=== PATIENT | male | born 1950 | race Caucasian/White ===

== ENCOUNTER 2016-03-23 04:26 | Emergency (ER) | payer MEDICARE, MEDICAID ==
[2016-03-23] MEDS ORDERED: MORPHINE 4 MG/ML INJECTION IV ONE (04:52)
[2016-03-23] MEDS ORDERED: NS 1,000 ML IV ONE ×2 (04:52→05:38)
[2016-03-23 05:15] LABS: AUTOMATED BASOPHIL 1.5 % (0-2); AUTOMATED LYMPH 23.3 % (17-44); AUTOMATED MONOCYTE 12.7 % (3-10); AUTOMATED NEUTROPHIL 60.5 % (45-76); MPV 8.1 fL (7.4-10.4)
[2016-03-23 05:16] VITALS: TEMP 98.7; BMI 25.0
--- NOTE | 2016-03-23 05:22 | EDPRACDOC ---
- General Information Stated Complaint: VOMITING, UPPER ABD PAIN Time Seen by Provider: 03/23/16 04:45 Information Source: Patient Mode Of Arrival: Car Home Medications: Home Medications Promethazine [Phenergan] 25 mg PO Q8H PRN #30 tab 03/23/16 Allergies/Adverse Reactions: Allergies Allergy/AdvReac Type Severity Reaction Status Date / Time No Known Allergies Allergy Verified 12/30/11 09:14 - History of Present Illness Onset: WEDNESDAY HPI: PT PRESENTS WITH 2 DAYS OF EPIGASTRIC/SUBSTERNAL PAIN WITH NAUSEA AND VOMITING. Pain Location: Reports: Epigastric Pain Context: Reports: Spontaneous Pain Severity: Moderate Pain Quality: Reports: Aching Modifying Factors: improves with: Nothing Associated Signs & Symptoms: Reports: Nausea, Vomiting, Diarrhea. Denies: Fever Oral Intake: Decreased ED Past Medical History - History Reviewed Yes Nurses notes reviewed and agree except as marked - Patient Medical History Psychological History: Denies: Depression Systemic History: Denies: Cancer Surgical History: Reports: Appendectomy - Social Medical History Smoking Status: Heavy tobacco smoker (5 or more cigarettes/day or daily pipe/ cigar) Lives With: Family Lives In: Home EDM Review of Systems - Review of Systems ROS Negative Except as Marked: Yes All systems reviewed and were negative except as marked Constitutional: negative: Fever Respiratory: negative: Shortness of Breath Cardiovascular: Chest Pain (LOWER SUBSTERNAL) Gastrointestinal: Diarrhea, Nausea, Pain (EPIGASTRIC), Vomiting Genitourinary: negative: Dysuria - Physical Exam Constitutional: Alert Oriented to: Time, Person, Place Last recorded Vital Signs: Last Vital Signs Temp 98.7 F 03/23/16 05:11 Pulse 74 03/23/16 05:16 Resp 18 03/23/16 05:16 BP 162/80 03/23/16 05:16 Pulse Ox 95 03/23/16 05:16 Oxygen Pulse Oxygen Saturation 95 O2 Device Oxygen Flow Rate Fraction of Inspired Oxygen ( FIO2) - HEENT Head: negative: Deformity, Laceration Eye Exam: negative: Conjunctival Injection, Pale Conjunctiva Oropharynx: negative: Membranes Dry Nose: negative: Congestion, Discharge Neck: negative: Limited ROM - Respiratory/Cardiovascular Respiratory: Normal - CTA. negative: Accessory Muscle Use, Diminished, Tachypnea Cardiovascular: negative: Bradycardia, Tachycardia, Irregular - GI Auscultation: Normal Palpation: Normal Tenderness: Mild, Epigastric. negative: Guarding, Rebound, Rigidity - Musculoskeletal Extremities: Radial Pulse (PALPABLE) - Integumentary Skin: Warm, Dry. negative: Rash - Neurologic Memory Impaired: Normal Motor Function: Normal Mood Description: Anxious Thought: Coherent Perception: Normal - Results 03/23/16 05:00 03/23/16 05:00 WBC 11.7 xk/uL (3.8-10.8) H 03/23/16 05:00 RBC 5.85 xM/uL (4.70-6.10) 03/23/16 05:00 Hgb 17.7 g/dL (14.0-18.0) 03/23/16 05:00 Hct 51.5 % (42-52) 03/23/16 05:00 MCV 88 fL (80-94) 03/23/16 05:00 MCH 30.2 pg (27-32) 03/23/16 05:00 MCHC 34.3 g/dl (33-36) 03/23/16 05:00 RDW 14.5 % (11.5-14.5) 03/23/16 05:00 Plt Count 199 xk/uL (130-400) 03/23/16 05:00 MPV 8.1 fL (7.4-10.4) 03/23/16 05:00 Neut % (Auto) 60.5 % (45-76) 03/23/16 05:00 Lymph % (Auto) 23.3 % (17-44) 03/23/16 05:00 [place] % (Auto) 12.7 % (3-10) H 03/23/16 05:00 Eos % (Auto) 2.0 % (0-5) 03/23/16 05:00 Baso % (Auto) 1.5 % (0-2) 03/23/16 05:00 Absolute Neuts (auto) 7.02 xk/uL (1.7-8.2) 03/23/16 05:00 Absolute Lymphs (auto) 2.69 xk/uL (0.65-4.75) 03/23/16 05:00 PT 10.3 SEC (9.2-11.2) 03/23/16 05:00 INR 1.0 03/23/16 05:00 APTT 30.8 SEC (22-35) 03/23/16 05:00 Sodium 136 mEq/L (137-146) L 03/23/16 05:00 Potassium 4.2 mEq/L (3.5-5.1) 03/23/16 05:00 Chloride 99 mEq/L (98-107) 03/23/16 05:00 Carbon Dioxide 26 mMOL/L (22-33) 03/23/16 05:00 Anion Gap 15 mEq/L (8-16) 03/23/16 05:00 BUN 20 MG/DL (9-20) 03/23/16 05:00 Creatinine 1.10 MG/DL (0.66-1.25) 03/23/16 05:00 Estimated GFR (MDRD) > 60 mL/min (>=60) 03/23/16 05:00 Glucose 128 MG/DL (70-99) H 03/23/16 05:00 Calculated Osmolality 267 MOs/Kg (270-290) L 03/23/16 05:00 Calcium 9.2 MG/DL (8.4-10.2) 03/23/16 05:00 Total Bilirubin 1.0 MG/DL (0.2-1.3) 03/23/16 05:00 AST 22 IU/L (17-59) 03/23/16 05:00 ALT 20 IU/L (21-72) L 03/23/16 05:00 Alkaline Phosphatase 95 IU/L (50-160) 03/23/16 05:00 Creatine Kinase 80 IU/L (55-170) 03/23/16 05:00 Troponin I < 0.01 ng/mL (<.04) 03/23/16 05:00 Total Protein 7.7 G/DL (6.3-8.2) 03/23/16 05:00 Albumin 4.2 G/DL (3.5-5.0) 03/23/16 05:00 Lipase 26 U/L (23-300) 03/23/16 05:00 Urine Color Dark yellow 03/23/16 05:16 Urine Clarity Clear 03/23/16 05:16 Urine pH 5.0 (5.0-8.0) 03/23/16 05:16 Ur Specific [place] 1.025 03/23/16 05:16 Urine Protein 1+ (NEG/TRACE) H 03/23/16 05:16 Urine Glucose (UA) Neg (NEGATIVE) 03/23/16 05:16 Urine Ketones Neg (NEGATIVE) 03/23/16 05:16 Urine Occult Blood Neg (NEG/TRACE) 03/23/16 05:16 Urine Nitrite Neg (NEGATIVE) 03/23/16 05:16 Urine Bilirubin Neg (NEGATIVE) 03/23/16 05:16 Urine Urobilinogen 0.2 MG/DL (0-1) 03/23/16 05:16 Ur Leukocyte Esterase Neg (NEGATIVE) 03/23/16 05:16 Urine RBC 2-5 (0-2) H 03/23/16 05:16 Urine WBC 2-5 (0-2) H 03/23/16 05:16 Urine Bacteria Few (NEG/FEW) 03/23/16 05:16 Hyaline Casts 10-20 (0-2) H 03/23/16 05:16 Urine Mucus Large (NEG/OCC) 03/23/16 05:16 Lab Results 03/23/16 03/23/16 03/23/16 05:16 05:00 05:00 WBC 11.7 H RBC 5.85 Hgb 17.7 Hct 51.5 MCV 88 MCH 30.2 MCHC 34.3 RDW 14.5 Plt Count 199 MPV 8.1 Neut % (Auto) 60.5 Lymph % (Auto) 23.3 [place] % (Auto) 12.7 H Eos % (Auto) 2.0 Baso % (Auto) 1.5 Absolute Neuts (auto) 7.02 Absolute Lymphs (auto) 2.69 PT 10.3 INR 1.0 APTT 30.8 Sodium Potassium Chloride Carbon Dioxide Anion Gap BUN Creatinine Estimated GFR (MDRD) Glucose Calculated Osmolality Calcium Total Bilirubin AST ALT Alkaline Phosphatase Creatine Kinase Troponin I Total Protein Albumin Lipase Urine Color Dark yellow Urine Clarity Clear Urine pH 5.0 Ur Specific [place] 1.025 Urine Protein 1+ H Urine Glucose (UA) Neg Urine Ketones Neg Urine Occult Blood Neg Urine Nitrite Neg Urine Bilirubin Neg Urine Urobilinogen 0.2 Ur Leukocyte Esterase Neg Urine RBC 2-5 H Urine WBC 2-5 H Urine Bacteria Few Hyaline Casts 10-20 H Urine Mucus Large 03/23/16 05:00 WBC RBC Hgb Hct MCV MCH MCHC RDW Plt Count MPV Neut % (Auto) Lymph % (Auto) [place] % (Auto) Eos % (Auto) Baso % (Auto) Absolute Neuts (auto) Absolute Lymphs (auto) PT INR APTT Sodium 136 L Potassium 4.2 Chloride 99 Carbon Dioxide 26 Anion Gap 15 BUN 20 Creatinine 1.10 Estimated GFR (MDRD) > 60 Glucose 128 H Calculated Osmolality 267 L Calcium 9.2 Total Bilirubin 1.0 AST 22 ALT 20 L Alkaline Phosphatase 95 Creatine Kinase 80 Troponin I < 0.01 Total Protein 7.7 Albumin 4.2 Lipase 26 Urine Color Urine Clarity Urine pH Ur Specific [place] Urine Protein Urine Glucose (UA) Urine Ketones Urine Occult Blood Urine Nitrite Urine Bilirubin Urine Urobilinogen Ur Leukocyte Esterase Urine RBC Urine WBC Urine Bacteria Hyaline Casts Urine Mucus - EKG EKG #1 EKG Time: 05:13 -: Yes EKG interpreted by me Rate: bpm: 85 [place]: Normal Rhythm: NSR Block: None Hypertrophy: None ST: Normal Decision Time to Discharge: 06:49 - Departure Yes I personally saw and evaluated the patient. Disposition: Home Condition: Improved Final Diagnosis: Nausea vomiting and diarrhea Instructions: Acute Nausea and Vomiting (ED) Education/Counseling Given To: Patient Education/Counseling Given Regarding: Diagnosis, Treatment, Prognosis, Follow Up Referrals: None,No Provider [NonStaff] - Call for Appointment Deo Chavarria MD [Staff Physician] - As Needed Prescriptions: Promethazine [Phenergan] 25 mg PO Q8H PRN #30 tab PRN Reason: Nausea/Vomiting Additional Instructions: MAKE SURE TO TAKE IN PLENTY OF FLUIDS.
[2016-03-23 05:24] LABS: BLOOD UREA NITROGEN 20 MG/DL (9-20); CALCIUM 9.2 MG/DL (8.4-10.2); CALCULATED OSMOLALITY 267 MOs/Kg (270-290); CHLORIDE 99 mEq/L (98-107); CPK TOTAL WITH POSSIBLE MB 80 IU/L (55-170); GLUCOSE 128 MG/DL (70-99); SODIUM LEVEL 136 mEq/L (137-146); TOTAL PROTEIN 7.7 G/DL (6.3-8.2)
[2016-03-23 05:26] LABS: LEUKOCYTES/URINE NEG (NEGATIVE); NITRITE/URINE NEG (NEGATIVE); URINE OCCULT BLOOD NEG (NEG/TRACE)
[2016-03-23 05:28] LABS: PARTIAL THROMB. TIME 30.8 SEC (22-35)
--- NOTE | 2016-03-23 05:33 | DIRPT ---
CLINICAL DATA: Acute onset of mid substernal chest pain and vomiting. Initial encounter. EXAM: CHEST 2 VIEW COMPARISON: Chest radiograph performed 07/24/2011 FINDINGS: The lungs are well-aerated. Vascular congestion is noted. Bibasilar atelectasis or scarring is seen. There is no evidence of pleural effusion or pneumothorax. The heart is normal in size; the mediastinal contour is within normal limits. No acute osseous abnormalities are seen. IMPRESSION: Vascular congestion noted. Bibasilar atelectasis or scarring seen. Electronically Signed By: Errol Anderson M.D. On: 03/23/2016 05:30
[2016-03-23] MEDS ORDERED: ONDANSETRON HCL 4 MG/2 ML VIAL IV STA (05:38)
[2016-03-23 07:25] VITALS: BP 126/66; PULSE 76
== END 2016-03-23 07:36 | disposition home or self-care (01) ==
LOC: ED 04:26
DX: R11.2 Nausea with vomiting, unspecified (principal); R19.7 Diarrhea, unspecified
CPT/HCPCS: 36415; 71020; 80053; 81001; 82550; 83690; 84484; 85025; 85610; 85730; 93005; 96361; 96374; 96375; 99284; J2270; J2405